=== PATIENT | female | born 1995 ===

== ENCOUNTER 2018-07-25 10:54 | Emergency (ER) | payer MEDICAID ==
[2018-07-25 11:07] VITALS: BP 119/74; PULSE 84; RESP 20; TEMP 98.8; O2SAT 99
--- NOTE | 2018-07-25 11:46 | C.PDOC ---
History Of Present Illness 22 year old female presents to the ED for evaluation of lower back pain for the last 3 days s/p injury. Patient states she fell down the stairs while carrying a laundry bag. Denies head injury, numbness, tingling, fever and other associated symptoms. Time Seen by Provider: 07/25/18 11:17 Chief Complaint (Nursing): Back Pain History Per: Patient History/Exam Limitations: no limitations Current Symptoms Are (Timing): Still Present Past Medical History Reviewed: Historical Data, Nursing Documentation, Vital Signs Vital Signs: Last Vital Signs Temp 98.8 F 07/25/18 11:04 Pulse 84 07/25/18 11:04 Resp 20 07/25/18 11:04 BP 119/74 07/25/18 11:04 Pulse Ox 99 07/25/18 15:10 - Medical History PMH: Back Problems Family History: States: Unknown Family Hx - Social History Hx Alcohol Use: Yes Hx Substance Use: No - Immunization History Hx Tetanus Toxoid Vaccination: No Hx Influenza Vaccination: No Hx Pneumococcal Vaccination: No Review Of Systems Except As Marked, All Systems Reviewed And Found Negative. Constitutional: Negative for: Fever Musculoskeletal: Positive for: Back Pain (lower back ) Neurological: Negative for: Weakness, Numbness, Incoordination Physical Exam - Physical Exam Appears: Non-toxic, Other (Morbidly obese ) Skin: Normal Color, Warm, Dry Head: Atraumatic, Normacephalic Respiratory: Other (NARD) Back: Paraspinal Tenderness Neurological/Psych: Oriented x3, Normal Speech, Normal Motor, Normal Sensation Gait: Steady ED Course And Treatment O2 Sat by Pulse Oximetry: 99 (RA) Pulse Ox Interpretation: Normal - Other Rad LS Spine X-Ray: Viewed By Me, Read By Radiologist Interpretation: FINDINGS: BONES: Normal alignment. No listhesis. No fracture. DISC SPACES: Unremarkable. OTHER FINDINGS: None. IMPRESSION: Unremarkable radiographs of the lumbar spine. Sacrum &/or Coccyx X-Ray: Viewed By Me, Read By Radiologist Interpretation: FINDINGS: BONES: Sacrum and coccyx unremarkable. No fracture or focal lesion. SACROILIAC JOINTS: Unremarkable. OTHER FINDINGS: None. IMPRESSION: Unremarkable radiographs of the sacrum and coccyx. Medical Decision Making Medical Decision Making: Plan: --X-ray LS Spine ordered. --X-ray Sacrum &/or Coccyx --Given Tylenol. Progress/Update: X-rays reviewed by me. Patient stable for discharge home. Prescribed Naproxen and Cyclobenzaprine. Disposition - Disposition Referrals: [facility] [Outside] [facility] [Outside] [facility] [Outside] Disposition: HOME/ ROUTINE Disposition Time: 03:00 Condition: STABLE Additional Instructions: follow up in clinic. return to er with worsening symptoms or concerns. Prescriptions: Cyclobenzaprine [Cyclobenzaprine HCl] 10 mg PO DAILY PRN #10 tab PRN Reason: Muscle Spasm RX: Naproxen [EC-Naprosyn] 500 mg PO BID PRN #14 tablet.dr DAVISON Reason: Pain, Mild (1-3) Instructions: Low Back Pain (DC) Forms: [facility] (Egyptian), Work Excuse - Clinical Impression Clinical Impression: Low back pain - Scribe Statement The provider has reviewed the documentation as recorded by the Scribe (Danyelle Sal) Provider Attestation: All medical record entries made by the Scribe were at my direction and personally dictated by me. I have reviewed the chart and agree that the record accurately reflects my personal performance of the history, physical exam, medical decision making, and the department course for this patient. I have also personally directed, reviewed, and agree with the discharge instructions and disposition.
--- NOTE | 2018-07-25 13:55 | RAD ---
Date of service: 07/25/2018 PROCEDURE: Radiographs of the Lumbar Spine. HISTORY: fall COMPARISON: No prior. FINDINGS: BONES: Normal alignment. No listhesis. No fracture. DISC SPACES: Unremarkable. OTHER FINDINGS: None. IMPRESSION: Unremarkable radiographs of the lumbar spine.
--- NOTE | 2018-07-25 13:55 | RAD ---
Date of service: 07/25/2018 PROCEDURE: Radiographs of the Sacrum and Coccyx HISTORY: fall COMPARISON: None available. TECHNIQUE: Frontal and lateral views of the sacrum and coccyx FINDINGS: BONES: Sacrum and coccyx unremarkable. No fracture or focal lesion. SACROILIAC JOINTS: Unremarkable. OTHER FINDINGS: None. IMPRESSION: Unremarkable radiographs of the sacrum and coccyx.
== END 2018-07-25 14:01 | disposition home or self-care (01) ==
LOC: C.ER 10:54
DX: M54.5 Low back pain (principal)